=== PATIENT | male | born 1970 | race Caucasian/White ===

== ENCOUNTER 2020-12-08 16:10 | Emergency (ER) | payer OTHER ==
[~2020-12-08] VITALS: Ht 165.1 cm; Wt 99.8 kg
[2020-12-08] MEDS ORDERED: NAPROSYN500 M1 PO (18:46)
[2020-12-08] MEDS ORDERED: FLEXERIL PO (18:46)
[2020-12-08] MEDS ORDERED: LISINOPRIL10 MG PO (19:06)
[2020-12-08 19:34] VITALS: BP 188/102
== END 2020-12-08 19:36 | disposition home or self-care (01) ==
LOC: M.ERS 16:10
DX: M54.2 Cervicalgia (principal); M54.5 Low back pain; I10 Essential (primary) hypertension; R10.30 Lower abdominal pain, unspecified; V43.62XA Car passenger injured in collision with other type car in traffic accident, initial encounter; Y93.89 Activity, other specified; Y92.89 Other specified places as the place of occurrence of the external cause; Y99.8 Other external cause status

== ENCOUNTER 2021-03-27 20:27 | Emergency (ER) | payer OTHER ==
[~2021-03-27] VITALS: Ht 167.6 cm; Wt 98.2 kg
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
[~2021-03-27 20:27] MED LIST: FLEXERIL PO; LISINOPRIL10 MG PO; NAPROSYN500 M1 PO
[2021-03-27] MEDS ORDERED: XARELTO15 MG PO (20:36)
[2021-03-27] MEDS ORDERED: LISINOPRIL20 MG PO (20:37)
[2021-03-27 20:54] LABS: ABSOLUTE BASOPHILS 0.1 thou/uL (0.0-0.2); ABSOLUTE EOSINOPHILS 0.1 thou/uL (0.0-0.7); ABSOLUTE LYMPHOCYTES 1.7 thou/uL (0.8-5.3); ABSOLUTE MONOCYTES 0.8 thou/uL (0.0-1.2); ABSOLUTE NEUTROPHILS 7.1 thou/uL (1.6-8.1); BASOPHILS 1.1 %; EOSINOPHILS 0.9 %; HEMATOCRIT 31.6 % (42.0-52.0); HEMOGLOBIN 10.6 gm/dL (14.0-18.0); MCH 26.8 pg (26.0-34.0); MCHC 33.4 g/dL (28.0-37.0); MCV 80.1 fL (80.0-100.0); MONOCYTES 8.1 %; MPV 6.7 fl. (7.2-11.1); NUCLEATED RBCS 0 /100WBC; PLATELET COUNT* 431 thou/uL (150-400); POLYS 72.9 %; RBC 3.94 mil/uL (4.50-6.00); RDW-CV 13.8 % (10.5-14.5); WBC 9.7 thou/uL (4.0-11.0)
[2021-03-27 21:05] LABS: INR 1.6; PROTIME 16.1 Seconds (9.20-11.50)
[2021-03-27 21:09] LABS: CALCIUM 8.7 mg/dL (8.5-10.1); CREATININE 0.9 mg/dL (0.6-1.3); POTASSIUM 4.2 mmol/L (3.5-5.1)
[2021-03-27 21:20] LABS: ALBUMIN 2.4 g/dL (3.4-5.0); TOTAL BILIRUBIN 0.4 mg/dL (<0.1-1.0); TOTAL PROTEIN 6.7 g/dL (6.4-8.2)
[2021-03-27] MEDS ORDERED: HYDROCODON-ACE1 EAC8 PO (22:40)
[2021-03-27 23:00] VITALS: BP 123/66
== END 2021-03-27 23:00 | disposition home or self-care (01) ==
LOC: M.ERS 20:27
PROVIDERS: Emergency Medicine
DX: M79.81 Nontraumatic hematoma of soft tissue (principal); M25.561 Pain in right knee; M79.661 Pain in right lower leg; M25.562 Pain in left knee; M79.662 Pain in left lower leg; I10 Essential (primary) hypertension; Z86.711 Personal history of pulmonary embolism; Z79.899 Other long term (current) drug therapy

== ENCOUNTER 2021-04-24 10:21 | Emergency (ER) | payer OTHER, MEDICAID ==
[~2021-04-24] VITALS: Ht 165.1 cm; Wt 94.3 kg
[~2021-04-24 10:21] MED LIST changes: +HYDROCODON-ACE1 EAC8 PO; +LISINOPRIL20 MG PO; +XARELTO15 MG PO
[2021-04-24] MEDS ORDERED: TRAMADOL 50 MG50 MG PO (11:24)
[2021-04-24 11:40] VITALS: BP 123/85
== END 2021-04-24 11:40 | disposition home or self-care (01) ==
LOC: M.ERS 10:21
DX: M79.604 Pain in right leg (principal); Z76.0 Encounter for issue of repeat prescription; M79.605 Pain in left leg; I10 Essential (primary) hypertension

== ENCOUNTER 2021-05-22 23:41 | Inpatient (IN) | payer OTHER, MEDICAID ==
[~2021-05-22] VITALS: Ht 172.7 cm; Wt 81.6 kg
--- NOTE | ~2021-05-22 | PROC ---
[address] [address] PROCEDURE REPORT Name: KEVIN COX Room: [address] IN M.R.#: [id number] Admission: 05/23/21 Attend Phys: Andrea Medina Discharge: 05/26/21 Date of : 70 Report #: [id number] THIS REPORT FOR: cc: FAM - No family physician/PCP FAM - No family physician/PCP [facility],Medical Records Staff ~ For GI report, please see the Provation report in Perceptive 7 content. By: [id number] Records Staff [facility] /ANABELLE
[~2021-05-22 23:41] MED LIST changes: +TRAMADOL 50 MG50 MG PO
[2021-05-22 23:47] VITALS: BP 122/75; BP 130/65
[2021-05-22] MEDS ORDERED: FLEXERIL PO (23:59)
[2021-05-23] MEDS ORDERED: HYDROCODON-ACE1 EAC7 PO
[2021-05-23 01:02] LABS: HEMATOCRIT 25.9 % (42.0-52.0); HEMOGLOBIN 8.3 gm/dL (14.0-18.0); MCH 23.2 pg (26.0-34.0); MCHC 32.1 g/dL (28.0-37.0); MCV 72.2 fL (80.0-100.0); MPV 6.4 fl. (7.2-11.1); RBC 3.59 mil/uL (4.50-6.00); RDW-CV 16.4 % (10.5-14.5); WBC 6.4 thou/uL (4.0-11.0)
[2021-05-23 01:10] LABS: CALCIUM 8.5 mg/dL (8.5-10.1); POTASSIUM 4.3 mmol/L (3.5-5.1)
[2021-05-23 01:14] LABS: INR 1.3; PROTIME 13.1 Seconds (9.20-11.50)
[2021-05-23 01:15] LABS: ALBUMIN 2.5 g/dL (3.4-5.0); TOTAL BILIRUBIN 0.2 mg/dL (<0.1-1.0); TOTAL PROTEIN 6.9 g/dL (6.4-8.2)
[2021-05-23 03:54] LABS: URINE BILIRUBIN NEGATIVE (Negative); URINE BLOOD NEGATIVE (Negative); URINE CLARITY CLEAR; URINE COLOR YELLOW; URINE GLUCOSE-RANDOM NEGATIVE (Negative); URINE KETONES NEGATIVE (Negative); URINE LEUKOCYTES-REFLEX NEGATIVE (Negative); URINE NITRITE-REFLEX NEGATIVE (Negative); URINE PROTEIN NEGATIVE (Negative); URINE SPECIFIC GRAVITY >= 1.030 (1.005-1.030); URINE UROBILINOGEN 0.2 E.U./dl (0.2-1.0)
[2021-05-23 08:00] VITALS: BP 120/74
--- NOTE | 2021-05-23 11:29 | EKG ---
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: ELAINA : 1970 Requested By: Clarissa Rizzo Order Number: [id number] MD: Jassi Silva Measurements Intervals Gardner Rate: 69 P: -13 LA: 158 QRS: 7 QRSD: 120 T: 44 QT: 428 QTc: 459 Interpretive Statements Sinus rhythm IVCD, consider atypical RBBB Baseline wander in lead(s) I,II,aVR No previous ECG available for comparison Electronically Signed On 05-23-2021 11:29:26 SAFETY DIRECTOR by Jassi Silva [email or web address] <ELECTRONICALLY SIGNED> By: Jassi Silva MD, [facility] 05/23/21 1129 [phone] Jassi Silva MD, [facility] /EPI
[2021-05-23 12:15] VITALS: BP 102/71
[2021-05-23 16:00] VITALS: BP 111/68
[2021-05-23 20:30] VITALS: BP 132/80
[2021-05-24] VITALS (7 sets, daily range): BP systolic 117–143; BP diastolic 65–82
[2021-05-24 06:20] LABS: ABSOLUTE EOSINOPHILS 0.1 thou/uL (0.0-0.7); ABSOLUTE LYMPHOCYTES 1.2 thou/uL (0.8-5.3); ABSOLUTE MONOCYTES 0.4 thou/uL (0.0-1.2); ABSOLUTE NEUTROPHILS 4.4 thou/uL (1.6-8.1); BASOPHILS 0.3 %; EOSINOPHILS 1.5 %; HEMATOCRIT 28.4 % (42.0-52.0); LYMPHOCYTES 19.5 %; MCH 22.9 pg (26.0-34.0); MCHC 31.8 g/dL (28.0-37.0); MONOCYTES 6.4 %; MPV 7.1 fl. (7.2-11.1); NUCLEATED RBCS 0 /100WBC; PLATELET COUNT* 278 thou/uL (150-400); POLYS 72.3 %; RBC 3.95 mil/uL (4.50-6.00); RDW-CV 16.4 % (10.5-14.5); WBC 6.1 thou/uL (4.0-11.0)
[2021-05-24 06:23] LABS: CALCIUM 8.6 mg/dL (8.5-10.1); CREATININE 0.7 mg/dL (0.6-1.3); POTASSIUM 4.3 mmol/L (3.5-5.1)
[2021-05-24 07:10] LABS: HYPOCHROMASIA 2+
[2021-05-24 07:11] LABS: MICROCYTES 1+; PLATELET ESTIMATE ADEQUATE; POIKILOCYTOSIS 1+
[2021-05-25] VITALS: BP 147/81
[2021-05-25 04:00] VITALS: BP 145/84
[2021-05-25 04:11] LABS: HEMATOCRIT 30.7 % (42.0-52.0); HEMOGLOBIN 9.7 gm/dL (14.0-18.0); MCHC 31.5 g/dL (28.0-37.0); MPV 6.9 fl. (7.2-11.1); NUCLEATED RBCS 0 /100WBC; PLATELET COUNT* 287 thou/uL (150-400); RBC 4.21 mil/uL (4.50-6.00); RDW-CV 16.3 % (10.5-14.5)
[2021-05-25 04:22] LABS: ABSOLUTE EOSINOPHILS 0.1 thou/uL (0.0-0.7); ABSOLUTE LYMPHOCYTES 1.3 thou/uL (0.8-5.3); ABSOLUTE MONOCYTES 0.4 thou/uL (0.0-1.2); ABSOLUTE NEUTROPHILS 3.3 thou/uL (1.6-8.1)
[2021-05-25 04:23] LABS: PLATELET ESTIMATE ADEQUATE
[2021-05-25 06:39] LABS: CREATININE 0.7 mg/dL (0.6-1.3); POTASSIUM 3.8 mmol/L (3.5-5.1)
[2021-05-25 08:00] VITALS: BP 129/73
--- NOTE | 2021-05-25 08:12 | NUR ---
PATIENT HAS RESTED WELL THROUGHOUT MOST OF THE NIGHT. VSS ON RA. MEDICATIONS GIVEN ORDERED AND CHARTED. PATIENT HAS CLEAR STOOLS THIS AM AND TOOK DULCOLAX TABS. IV IN RIGHT AC-SL. PATIENT INSTRUCTED TO USE CALL LIGHT WHEN NEEDING ASSISTANCE. HOURLY ROUNDS MADE. WILL CONTINUE WITH PLAN OF CARE AND NURSING TO MONITOR.
--- NOTE | 2021-05-25 10:21 | NUR ---
CM ASSESSMENT: PT A&O. PT USES 0 DME. PT HAS 0 HX OF HH OR SNF. PT INFORMS THAT HE DOESNT CURRENTLY HAVE A PCP, BUT HAS A NEW PCP APPT SCHEDULED FOR 06/09/21. CM D/C PLANNING NEEDS TBD. CM WILL REMAIN AVAILABLE TO ASSIST AND FOLLOW NEEDED.
[2021-05-25 15:55] VITALS: BP 140/71
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
[2021-05-25 21:45] VITALS: BP 137/72
[2021-05-26 01:14] VITALS: BP 141/75
[2021-05-26 03:48] VITALS: BP 133/79
[2021-05-26 05:05] LABS: ABSOLUTE EOSINOPHILS 0.1 thou/uL (0.0-0.7); ABSOLUTE LYMPHOCYTES 1.5 thou/uL (0.8-5.3); ABSOLUTE MONOCYTES 0.4 thou/uL (0.0-1.2); ABSOLUTE NEUTROPHILS 3.3 thou/uL (1.6-8.1); BASOPHILS 0.5 %; EOSINOPHILS 2.2 %; HEMATOCRIT 31.8 % (42.0-52.0); HEMOGLOBIN 10.2 gm/dL (14.0-18.0); LYMPHOCYTES 27.7 %; MCHC 32.1 g/dL (28.0-37.0); MCV 71.6 fL (80.0-100.0); MONOCYTES 7.1 %; MPV 6.9 fl. (7.2-11.1); NUCLEATED RBCS 0 /100WBC; PLATELET COUNT* 286 thou/uL (150-400); POLYS 62.5 %; RBC 4.44 mil/uL (4.50-6.00); RDW-CV 15.8 % (10.5-14.5); WBC 5.3 thou/uL (4.0-11.0)
[2021-05-26 05:11] LABS: CALCIUM 8.8 mg/dL (8.5-10.1); CREATININE 0.6 mg/dL (0.6-1.3); POTASSIUM 3.7 mmol/L (3.5-5.1)
--- NOTE | 2021-05-26 05:32 | NUR ---
PT SLEPT WELL OVERNIGHT AFTER RECEIVING HYDROCODONE FOR GENERALIZED PAIN, BACK. FLEXERIL GIVEN ORDERED. HAS BEEN NPO SINCE MIDNIGHT FOR ABD XRAY SERIES TODAY. POSSIBLE DC AFTER ABD SERIES COMPLETED.TELE SR. RA. NITISH LUGO. ABLE TO USE CALL LITE AND MAKE NEEDS KNOWN.
[2021-05-26 08:00] VITALS: BP 128/74
[2021-05-26 08:01] LABS: ESR (SEDRATE) 84 mm/hr (0-20)
[2021-05-26 12:11] VITALS: BP 134/76
[2021-05-26] MEDS ORDERED: IRON325 PO (12:34)
[2021-05-26] MEDS ORDERED: ELIQUIS5 MG PO (12:34)
[2021-05-26 13:07] VITALS: BP 134/76
--- NOTE | 2021-05-26 13:59 | NUR ---
PHYSICIAN INFORMS OF PLAN FOR THIS PT TO D/C HOME TODAY WITH SELF-CARE. NO CM D/C PLANNING NEEDS ANTICIPATED. CM WILL REMAIN AVAILABLE TO ASSIST AND FOLLOW NEEDED.
--- NOTE | 2021-05-27 12:06 | PATH ---
[address] [address] PATHOLOGY RPT PROCEDURE Name: SHAN PULIDO Room: [address] IN M.R.#: [id number] Admission: 05/23/21 Date of : 70 Discharge: 05/26/21 Report #: [id number] Path Case #: [id number] [facility] Accession Number: [id number] . 01 Material submitted: . PART A: small bowel - SMALL BOWEL BIOPSY/IRON DEFICIENCY ANEMIA PART B: colon - MID TRANSVERSE COLON POLYP. Modifiers: mid, transverse . 01 Clinical history: . EGD AND COLONOSCOPY GI BLEED, LEG SWELLING RIGHT AND INTRACTABLE RLE . 02 Diagnosis: A. Small bowel biopsy: - Mild nonspecific active duodenitis, negative for granulomas, significant intraepithelial lymphocytosis/villous atrophy, viral inclusions, and dysplasia/adenomatous change. . B. Mid transverse colon polyp: - Tubular adenoma, negative for high-grade dysplasia. (DEAN:pit; 05/26/2021) QTP 05/26/2021 1433 Local . 02 Electronically signed: . Magdaleno Brown MD, Pathologist NPI- [id number] . 01 Gross description: . A. The specimen is received in formalin, labeled "Shan Pulido, small bowel biopsy/iron deficiency anemia". Received are 4 segments of pale kang tissue ranging in size from 0.3-0.4 cm in maximum dimension. The specimen is entirely submitted in cassette A1. . B. The specimen is received in formalin, labeled "Shan Pulido, mid transverse colon polyp". Received are 2 segments of pale kang tissue measuring 0.3 and 0.4 cm in maximum dimensions. The specimen is entirely submitted in cassette B1. ([facility]; 05/25/2021) NRI/NRI 05/25/2021 2111 Local . 02 Pathologist provided ICD-10: K29.80, D12.3 . 02 CPT . 167040, 814181 Specimen Comment: A courtesy copy of this report has been sent to [phone] Specimen Comment: [address] [place] [address] PATHOLOGY RPT PROCEDURE Name: SHAN PULIDO Room: [address] IN M.R.#: [id number] Admission: 05/23/21 Date of : 70 Discharge: 05/26/21 Report #: [id number] Path Case #: [id number] Specimen Comment: Report sent to / DR ASHRAF Specimen Comment: A duplicate report has been generated due to demographic updates. Performed at: [address], [place] [id number] MD Johnson Broderick MD Phone: [phone] Performed at: 02 [facility] [address], [place], [place] [id number] MD Magdaleno Brown MD Phone: [phone]
== END 2021-05-26 17:27 | disposition home or self-care (01) | DRG 378 ==
LOC: M.ERS 23:41 → M.2W 05-23 03:45 → M.TBA-ER 05-23 03:45 → M.2W 05-24 15:11
PROVIDERS: Internal Medicine Gastroenterology; Personal Emergency Response Attendant; ADMIT Internal Medicine; ATTEND Internal Medicine
PROC: 0DB98ZX Excision of Duodenum, Via Natural or Artificial Opening Endoscopic, Diagnostic (ICD-10-PCS; principal; 2021-05-25)
PROC: 0DBL8ZX Excision of Transverse Colon, Via Natural or Artificial Opening Endoscopic, Diagnostic (ICD-10-PCS; principal; 2021-05-25)
DX: K92.2 Gastrointestinal hemorrhage, unspecified (principal); I82.409 Acute embolism and thrombosis of unspecified deep veins of unspecified lower extremity; D62 Acute posthemorrhagic anemia; R65.10 Systemic inflammatory response syndrome (SIRS) of non-infectious origin without acute organ dysfunction; Z86.718 Personal history of other venous thrombosis and embolism; Z79.01 Long term (current) use of anticoagulants; D50.9 Iron deficiency anemia, unspecified; I10 Essential (primary) hypertension; Z20.822 Contact with and (suspected) exposure to COVID-19